=== PATIENT | female | born 1935 | race Caucasian/White ===

== ENCOUNTER 2017-04-14 12:48 | Inpatient (IN) | payer OTHER ==
--- NOTE | 2017-04-14 12:55 | EDPHY ---
HPI/HX/ROS/PE/MDM Narrative: CHIEF COMPLAINT: SOB HPI: This patient is an 81 year old female arriving via EMS with her son complaining that "I don't have enough air in my lungs to walk to the mailbox and back." Her shortness of breath began about three weeks ago, and has been worsening since onset. The patient was hospitalized in May 2016 for pneumonia, and was diagnosed with osteoporosis shortly following this after she sustained a foot fracture in June. Six months ago, she began taking osteoporosis medication ( Actonel, once weekly). The patient's son at bedside states she has considerable stress around this event and attributes many of her symptoms to this medication. He notes that the timeline of her symptoms do not seem to match up with the initiation of her new medication regimen. Today, the patient had a routine physical with her primary care physician. At this time, she was noted to have possible heart block on EKG and cardiomegaly on x-ray. She was sent directly to the emergency department by ambulance. Her only complaint is her shortness of breath, and she states "it feels in there and I can't breathe ". She denies dyspnea or chest pain. She denies pain or swelling in her ankles. No fever, vomiting, diarrhea, urinary complaints, or other associated symptoms. REVIEW OF SYSTEMS: Aside from elements discussed in the HPI, a comprehensive 10-point review of systems was reviewed and is negative. PMH: 1. GERD 2. Osteoporosis 3. Orthopnea SOCIAL HISTORY: Son at bedside. . Lives in [place]. Retired. PHYSICAL EXAM: General:Patient is alert, in no acute distress. ENT:Eyes are normal to inspection. ENT inspection normal. Neck: Normal inspection. Full range of motion. Respiratory:No respiratory distress. Breath sounds normal bilaterally. Cardiovascular: Regular bradycardia. Strong peripheral pulses. Normal cap refill. Abdomen:The abdomen is nontender to palpation. There are no peritoneal signs. There are normal bowel sounds. Back: Normal to inspection. No tenderness to palpation. Skin: Normal color. No rash. Warm and dry. Extremities: 1-2+ pitting edema in ankles bilaterally. Full range of motion. Neuro: Oriented x3. Normal motor function. Normal sensory function. ED Course: 81 y/o female with history of osteoporosis and orthopnea presents with shortness of breath, particularly with exertion. She is currently bradycardic, rate 45. 1-2+ pitting edema in ankles bilaterally. Plan for lab work, repeat chest x-ray. 13:06 EKG was ordered and interpreted by myself. Please see [facility] system for official reading. Possible complete heart block, plan to obtain rhythm strip for review. Pacer pads placed. Reviewed rhythm strip. Suspect third degree heart block. Plan to consult with outside sales manager field investigations. Reviewed chest x-ray. Evidence of diffuse interstitial infiltrate. 14:42 Spoke with outside sales manager field investigations. Cardiology to consult. 14:[address] Moreira, outside sales. He concurs that the patient has third degree heart block, and the patient will require pacemaker placement. Plan to consult with [facility] to determine whether the patient will undergo pacer placement at a [facility] facility or here at [facility]. 14:43 Spoke with [facility] staff. Patient will remain here for pacer placement. Dr. Moreira will accept admission for third degree heart block and perioperative management of this patient. ED CRITICAL CARE TIME: A total of 45 minutes of critical care time was spent on this patient including intensive monitoring, discussion with consultants and [facility], and resuscitation. Organ system at risk is cardiovascular. MDM: This patient presents with exertional dyspnea and is found to be in third- degree heart block. Her BP remained stable in ED but she was consistently bradycardic and was monitored extremely closely with pacer pads in place. I see no evidence of ACS, TAD, sepsis, PE. - Data Points Imaging Results: Imaging Impressions Chest X-Ray 04/14/17 13:25 Impression: Diffuse interstitial infiltrate with a fine micronodular pattern could represent interstitial pulmonary edema, viral pneumonitis or possibly miliary TB. Results discussed with Dr. Orantes at 1:53 PM. Imaging: Discussed imaging studies w/ brewer helper Radiologist, I viewed and interpreted images myself Laboratory Results: Laboratory Results 04/14/17 13:51 04/14/17 13:51 04/14/17 04/14/17 04/14/17 13:51 13:51 13:51 WBC 8.64 10^3/uL 10^3/uL (3.80-9.50) RBC 4.35 10^6/uL 10^6/uL (4.18-5.33) Hgb 14.4 g/dL g/dL (12.6-16.3) Hct 41.4 % % (38.0-47.0) MCV 95.2 fL fL (81.5-99.8) MCH 33.1 pg pg (27.9-34.1) MCHC 34.8 g/dL g/dL (32.4-36.7) RDW 13.2 % % (11.5-15.2) Plt Count 185 10^3/uL 10^3/uL (150-400) MPV 11.5 fL fL (8.7-11.7) Neut % (Auto) 63.4 % % (39.3-74.2) Lymph % (Auto) 23.3 % % (15.0-45.0) [place] % (Auto) 9.4 % % (4.5-13.0) Eos % (Auto) 3.1 % % (0.6-7.6) Baso % (Auto) 0.6 % % (0.3-1.7) Nucleat RBC Rel Count 0.0 % % (0.0-0.2) Absolute Neuts (auto) 5.48 10^3/uL 10^3/uL (1.70-6.50) Absolute Lymphs (auto) 2.01 10^3/uL 10^3/uL (1.00-3.00) Absolute Monos (auto) 0.81 10^3/uL H 10^3/uL (0.30-0.80) Absolute Eos (auto) 0.27 10^3/uL 10^3/uL (0.03-0.40) Absolute Basos (auto) 0.05 10^3/uL 10^3/uL (0.02-0.10) Absolute Nucleated RBC 0.00 10^3/uL 10^3/uL (0-0.01) Immature Gran % 0.2 % % (0.0-1.1) Immature Gran # 0.02 10^3/uL 10^3/uL (0.00-0.10) PT 14.0 SEC SEC (12.0-15.0) INR 1.06 (0.83-1.16) APTT 31.1 SEC SEC (23.0-38.0) Sodium 143 mEq/L mEq/L (134-144) Potassium 4.1 mEq/L mEq/L (3.5-5.2) Chloride 106 mEq/L mEq/L (97-110) Carbon Dioxide 25 mEq/l mEq/l (22-31) Anion Gap 12 mEq/L mEq/L (8-16) BUN 21 mg/dL mg/dL (7-23) Creatinine 0.8 mg/dL mg/dL (0.6-1.0) Estimated GFR > 60 Glucose 94 mg/dL mg/dL (70-100) Calcium 9.7 mg/dL mg/dL (8.5-10.4) Troponin I 0.020 ng/mL ng/mL (0.000-0.034) NT-Pro-B Natriuret Pep 421 pg/mL pg/mL (0-450) General Time Seen by Provider: 04/14/17 12:51 Initial Vital Signs: Initial Vital Signs Temperature (C) 36.8 C 04/14/17 12:50 Heart Rate 47 L 04/14/17 12:50 Respiratory Rate 16 04/14/17 12:50 Blood Pressure 167/73 H 04/14/17 12:50 O2 Sat (%) 93 04/14/17 12:50 O2 Delivery Mode Nasal Cannula O2 (L/minute) 2 Allergies/Adverse Reactions: cephalexin [From Keflex] Allergy (Intermediate, Verified 04/15/17 12:04) Hives lovastatin [From Mevacor] Allergy (Intermediate, Verified 04/15/17 12:04) Other-Enter Comments macadamia nut oil Allergy (Intermediate, Verified 04/15/17 12:04) Vomiting simvastatin [From Zocor] Allergy (Intermediate, Verified 04/15/17 12:04) Other-Enter Comments alendronate sodium Allergy (Unknown, Verified 04/15/17 12:04) Unknown gemfibrozil [From Lopid] Allergy (Unknown, Verified 04/15/17 12:04) Unknown Penicillins Allergy (Unknown, Verified 04/15/17 12:04) Unknown Home Medications: Medication Instructions Recorded Ascorbic Acid [Vitamin C 500 mg 500 mg PO DAILY 04/14/17 (*)] Aspirin EC [Aspirin EC 81 mg (*)] 81 mg PO DAILY 04/14/17 Calcium Carb W/Vit D [Calcium Carb 500 mg PO DAILY 04/14/17 W/Vit D 500/200 (*)] Cholecalciferol Vit D3 [Vitamin D3 1,000 units PO DAILY 04/14/17 (*)] Cyanocobalamin [Vitamin B12 (*)] 500 mcg PO DAILY 04/14/17 Loratadine [Claritin] 10 mg PO DAILY 04/14/17 Niacin [Slo-Niacin] 500 mg PO QID 04/14/17 Potassium Cl [Klor-Con 10 meq (RX)] 10 meq PO DAILY 04/14/17 Ranitidine HCl [Zantac] 300 mg PO BID 04/14/17 Risedronate Sodium [Actonel] 35 mg PO SA@0700 04/14/17 Triamterene/Hydrochlorothiazid 1 each PO DAILY 04/14/17 [Triamterene-Hctz 75-50 mg Tab] Glucosamine Sulfate [Glucosamine 1,000 mg PO TID 04/15/17 Sulfate 500 MG (*)] Herbals/Supplements -Info Only 1 ea PO DAILY 04/15/17 Multivitamins [Multivitamin (*)] 1 each PO DAILY 04/15/17 Omeprazole [Prilosec 20 mg] 20 mg PO DAILY PRN 04/15/17 Acetaminophen [Tylenol 325mg (*)] 650 mg PO Q4HRS PRN tab 04/16/17 Aspirin [Aspirin 81mg (*)] 81 mg PO DAILY #30 tab.chew 04/16/17 Losartan Potassium [Cozaar 50 mg 50 mg PO DAILY tab 04/16/17 (*)] Metoprolol Succinate Xr [Toprol Xl 25 mg PO DAILY #30 tab 04/16/17 25 mg (*)] Triamterene/Hctz 37.5/25 1 each PO DAILY tab 04/16/17 [Maxzide-25 (*)] Departure - Departure Disposition: [facility] Inpatient Acute Clinical Impression: Third degree heart block Condition: Fair Report Scribed for: Osbaldo Orantes Report Scribed by: Ignacia Guzman Date of Report: 04/14/17 Time of Report: 12:54 Physician Review and Approval Statement: Portions of this note were transcribed by an ED scribe. I personally performed the history, physical exam, and medical decision making; and confirm the accuracy of the information in the transcribed note.
--- NOTE | 2017-04-14 13:09 | CPEKG ---
Heart Rate: 45 RR Interval: 1333 QRSD Interval: 112 QT Interval: 512 QTC Interval: 443 QRS [place]: -52 T Wave [place]: -13 EKG Severity - ABNORMAL ECG - EKG Impression: JUNCTIONAL ESCAPE RHYTHM EKG Impression: INCOMPLETE RBBB AND LAFB EKG Impression: PROBABLE LEFT VENTRICULAR HYPERTROPHY Electronically Signed By: Osbaldo Orantes 14-Apr-2017 21:22:21
[2017-04-14 13:55] LABS: PLATELET COUNT 185 10^3/uL (150-400)
[2017-04-14 14:04] LABS: INR 1.06 (0.83-1.16)
[2017-04-14] MEDS ORDERED: ONDANSETRON 4 MG/2 ML VIAL IVP PRN (15:04)
[2017-04-14] MEDS ORDERED: ONDANSETRON DISINTEGRATING 4 MG TAB PO PRN (15:04)
[2017-04-14] MEDS ORDERED: NS 1,000 ML IV ONE (15:04)
--- NOTE | 2017-04-14 15:43 | PDGENHP ---
History and Physical - Chief Complaint Short of breath - History of Present Illness 81-year-old female no prior cardiovascular history, longstanding hypertension hyperlipidemia which been well managed presents today with 4 week history of progressive exertional shortness of breath. She has not been able to take more than 1 step without having to the gasp for breath. This is not been associated with syncope or near-syncope. This is not associated with chest pain, PND, orthopnea. She was seen today by her primary care doctor who performed an EKG showing complete heart block and she was transferred by ambulance to the emergency department. On my arrival she had her ventricular response of 44 beats per minute. Blood pressure is normal. She is asymptomatic at rest. She has no past cardiac history. In particular, she has no history of cardiac dysrhythmia, valvular heart disease, coronary artery disease. Risk as mentioned above includes hypertension treated with metoprolol and hyperlipidemia. She recently had fractures was diagnosed with osteoporosis. History Information - Allergies/Home Medication List Allergies/Adverse Reactions: alendronate sodium Allergy (Verified 04/14/17 13:00) cephalexin [From Keflex] Allergy (Verified 04/14/17 13:00) gemfibrozil [From Lopid] Allergy (Verified 04/14/17 13:00) lovastatin [From Mevacor] Allergy (Verified 04/14/17 13:00) macadamia nut oil Allergy (Verified 04/14/17 13:00) Penicillins Allergy (Verified 04/14/17 13:00) simvastatin [From Zocor] Allergy (Verified 04/14/17 13:00) Home Medications: Actonel 04/14/17 [Last Taken Unknown] Aspirin EC 81 mg (*) 04/14/17 [Last Taken Unknown] Calcium Carbonate 04/14/17 [Last Taken Unknown] K-Tab ER 04/14/17 [Last Taken Unknown] Loratadine 04/14/17 [Last Taken Unknown] Maxzide-25 (*) 04/14/17 [Last Taken Unknown] Metoprolol Tartrate 04/14/17 [Last Taken Unknown] Slo-Niacin 04/14/17 [Last Taken Unknown] Super Dha Gems Softgel 04/14/17 [Last Taken Unknown] Vitamin B-12 04/14/17 [Last Taken Unknown] Vitamin C 500 mg (*) 04/14/17 [Last Taken Unknown] Vitamin D3 04/14/17 [Last Taken Unknown] Zantac 04/14/17 [Last Taken Unknown] I have personally reviewed and updated: family history, medical history, social history, surgical history - Past Medical History hypertension, hyperlipidemia, recent fracture - Family History Positive for: non-pertinent - Social History Smoking Status: Never smoked Alcohol Use: None Review of Systems Review of Systems: Constitutional: Reports: no symptoms EENMT: Reports: no symptoms Cardiac: Reports: no symptoms Respiratory: Reports: shortness of breath. Denies: cough, orthopnea, stridor, wheezing Gastrointestinal: Reports: no symptoms Genitourinary: Reports: no symptoms Muscolosketal: Reports: no symptoms Skin: Reports: no symptoms Neurological: Reports: no symptoms Hematologic/Lymphatic: Reports: no symptoms Immunologic/Allergy: Reports: no symptoms Physical Exam Physical Exam: Temp Pulse Resp BP Pulse Ox 36.4 C 44 L 12 181/91 H 97 04/14/17 14:00 04/14/17 14:00 04/14/17 14:00 04/14/17 14:00 04/14/17 14:00 Constitutional: no apparent distress, not in pain Eyes: PERRL, anicteric sclera Ears, Nose, Mouth, Throat: moist mucous membranes, hearing normal, No oral ulcer Cardiovascular: regular rate and rhythym, No no murmur, rub, or gallop Peripheral Pulses: 1+: carotid (R), carotid (L) Respiratory: no respiratory distress, no rales or rhonchi, clear to auscultation Gastrointestinal: normoactive bowel sounds, soft, non-tender abdomen Genitourinary: no bladder fullness Skin: normal color, no rashes or abrasions Musculoskeletal: full muscle strength Neurologic: AAOx3, No facial droop Psychiatric: interacting appropriately, No anxious Lymph, Heme, Immunologic: no cervical LAD, no supraclavicular LAD Lab Data & Imaging Review 04/14/17 13:51 04/14/17 13:51 WBC 8.64 10^3/uL (3.80-9.50) 04/14/17 13:51 RBC 4.35 10^6/uL (4.18-5.33) 04/14/17 13:51 Hgb 14.4 g/dL (12.6-16.3) 04/14/17 13:51 Hct 41.4 % (38.0-47.0) 04/14/17 13:51 MCV 95.2 fL (81.5-99.8) 04/14/17 13:51 MCH 33.1 pg (27.9-34.1) 04/14/17 13:51 MCHC 34.8 g/dL (32.4-36.7) 04/14/17 13:51 RDW 13.2 % (11.5-15.2) 04/14/17 13:51 Plt Count 185 10^3/uL (150-400) 04/14/17 13:51 MPV 11.5 fL (8.7-11.7) 04/14/17 13:51 Neut % (Auto) 63.4 % (39.3-74.2) 04/14/17 13:51 Lymph % (Auto) 23.3 % (15.0-45.0) 04/14/17 13:51 [place] % (Auto) 9.4 % (4.5-13.0) 04/14/17 13:51 Eos % (Auto) 3.1 % (0.6-7.6) 04/14/17 13:51 Baso % (Auto) 0.6 % (0.3-1.7) 04/14/17 13:51 Nucleat RBC Rel Count 0.0 % (0.0-0.2) 04/14/17 13:51 Absolute Neuts (auto) 5.48 10^3/uL (1.70-6.50) 04/14/17 13:51 Absolute Lymphs (auto) 2.01 10^3/uL (1.00-3.00) 04/14/17 13:51 Absolute Monos (auto) 0.81 10^3/uL (0.30-0.80) H 04/14/17 13:51 Absolute Eos (auto) 0.27 10^3/uL (0.03-0.40) 04/14/17 13:51 Absolute Basos (auto) 0.05 10^3/uL (0.02-0.10) 04/14/17 13:51 Absolute Nucleated RBC 0.00 10^3/uL (0-0.01) 04/14/17 13:51 Immature Gran % 0.2 % (0.0-1.1) 04/14/17 13:51 Immature Gran # 0.02 10^3/uL (0.00-0.10) 04/14/17 13:51 PT 14.0 SEC (12.0-15.0) 04/14/17 13:51 INR 1.06 (0.83-1.16) 04/14/17 13:51 APTT 31.1 SEC (23.0-38.0) 04/14/17 13:51 Sodium 143 mEq/L (134-144) 04/14/17 13:51 Potassium 4.1 mEq/L (3.5-5.2) 04/14/17 13:51 Chloride 106 mEq/L (97-110) 04/14/17 13:51 Carbon Dioxide 25 mEq/l (22-31) 04/14/17 13:51 Anion Gap 12 mEq/L (8-16) 04/14/17 13:51 BUN 21 mg/dL (7-23) 04/14/17 13:51 Creatinine 0.8 mg/dL (0.6-1.0) 04/14/17 13:51 Estimated GFR > 60 04/14/17 13:51 Glucose 94 mg/dL (70-100) 04/14/17 13:51 Calcium 9.7 mg/dL (8.5-10.4) 04/14/17 13:51 Troponin I 0.020 ng/mL (0.000-0.034) 04/14/17 13:51 NT-Pro-B Natriuret Pep 421 pg/mL (0-450) 04/14/17 13:51 Visualized and Interpreted imaging results: Yes Interpretation: Echocardiogram shows no pericardial effusion. Preserved LV systolic function without significant valvular abnormalities. EKG Interpretation: Positive for: other (Sinus rhythm with third-degree AV block. Ventricular rate of 44 beats per minute) Assessment & Plan Assessment: Third degree heart block (Acute) 81-year-old female with history of hypertension hyperlipidemia on beta-vu now with 4 week history of progressive exertional shortness of breath. Likely etiology is complete heart block with limited ventricular response. At the present time she is hemodynamically stable at rest. She is on AV steve agent. Would recommend discontinuing her metoprolol with observation over the next 12- 18 hours. If av conduction does not improve would recommend permanent pacing. We will await completion of metabolic profile including thyroid hormone. EKG does not suggest acute injury. Cardiac enzymes pending. Risks benefits permanent pacing were discussed with the patient her family. I am hoping that her AV node will recover. I have discussed the case with Dr. Chin. Either he or I will be available over the weekend place the device if necessary. Plan: 1. Discontinue metoprolol. 2. Evaluate metabolic profile. 3. Consider permanent pacing if AV node does not recover. Past Medical History PMH: - Personal History Current Tetanus/Diphtheria Vaccine: Yes Current Tetanus Diphtheria and Acellular Pertussis (TDAP): Yes - Medical/Surgical History Hx Asthma: No Hx Chronic Respiratory Disease: No Hx Cardiac Disease: No Hx Diabetes: No Hx Renal Disease: No Hx Alcoholism: No Hx Cirrhosis: No Hx HIV/AIDS: No Hx Splenectomy or Spleen Trauma: No Other PMH: orthopnea, GERD - Social History Smoking Status: Never smoked Additional Social History: Patient enjoys travel. She has 2 sons were present at the bedside.
--- NOTE | 2017-04-14 16:13 | ECHO ---
[email or web address] [address] Main: [phone] Fax: [email or web address] Echocardiogram Name: KARINA WEEKS MR#: [id number] Study Date: 04/14/2017 Study Time: 03:29 PM Date of : 1935 Age: 81 year(s) Height: 157.5 cm (62 in.) Weight: 81.65 kg (180 lb.) BSA: 1.83 m2 Gender: Female Examination: Echo Indication: SOB/heart block Image Quality: Contrast: Requested by: Demarco Moreira BP: / Heart Rate: Rhythm: Indication: SOB/heart block Procedure Staff Hoop Riveting Machine Operator Helper: Viri Ames Physician: Demarco Moreira Requesting Provider: Conclusions: No pericardial effusion. Preserved left ventricular systolic function. Ejection fraction 65%. Concentric left ventricular hypertrophy. No significant valvular abnormalities by Doppler 2 dimensional study. Right ventricular systolic pressure is elevated at 52 mm of mercury Measurements: Chambers Valvular Assessment AV/MV Valvular Assessment TV/PV Normal Normal Normal Name Value Range Name Value Range Name Value Range Ao Paige (MM): 3.4 cm (2.2 cm-3.7 AV Vmax: 1.47 m/s (1 m/s-1.7 TR Vmax: 3.44 mm/s ( - ) cm) m/s) TR PGmax: 47 mmHg ( - ) IVSd (2D): 1.2 cm (0.6 cm-1.1 AV maxP mmHg ( - ) syst. PAP: 52 mmHg ( - ) cm) AV meanP mmHg ( - ) LVDd (2D): 4.6 cm (3.9 cm-5.3 MV E Vmax: 0.85 m/s ( - ) cm) MV A Vmax: 0.93 m/s ( - ) LVDs (2D): 3.1 cm (2.1 cm-4 MV E/A: 0.91 ( - ) cm) LVPWd (2D): 1.1 cm ( - ) LVEF (MOD4): 67 % (>=55 %) EF Range: 65-70 % Continued Measurements: Chambers Valvular Assessment AV/MV Valvular Assessment TV/PV Name Value Name Value Name Value LADs: 3.7 cm MV E/E' Septal: 4.90 CVP (est.): 5 mmHg LADs Lon.1 cm MV E/E' Lateral: 12.50 LA Area: 17.7 cm2 Additional Vessels Patient: KARINA WEEKS Study Date: 04/14/2017 Page 1 of 2 03:29 PM Name Value Ao Ascendin.0 cm Findings: Left Ventricle: Normal size left ventricle. Mild concentric LV hypertrophy. Normal global systolic LV function. The ejection fraction is estimated to be 65-70 %. No regional wall motion abnormality. Right Ventricle: Normal size right ventricle. Left Atrium: The left atrium is normal in size. Right Atrium: The right atrium is normal in size. Mitral Valve: The mitral valve is normal in appearance and function. Mild mitral valve regurgitation is present. Aortic Valve: The aortic valve is normal in appearance and function. Trivial aortic valve regurgitation. Tricuspid Valve: The tricuspid valve is normal in appearance and function. Mild tricuspid regurgitation is present. The pulmonary artery pressure is mildly increased. RVSP is 52mmHG.. Pulmonic Valve: The pulmonic valve is normal in appearance and function. Trivial pulmonic valve regurgitation. Aorta: Borderline ascending aorta.. The aorta is normal. Pericardium: No pericardial effusion. (No Signature Object) Patient: KARINA WEEKS Study Date: 04/14/2017 Page 2 of 2 03:29 PM [id number]
[2017-04-14] MEDS ORDERED: LOSARTAN/HCTZ 50/12.5 1 TAB PO SCH (16:15)
[2017-04-14] MEDS: TRIAMTERENE/HCTZ 37.5/25 1 EACH TAB PO SCH (18:22)
[2017-04-14] MEDS: LOSARTAN POTASSIUM 50 MG TAB PO SCH (18:22)
[2017-04-15 04:39] LABS: CREATINE KINASE 65 IU/L (0-156)
[2017-04-15] MEDS ORDERED: BACITRACIN IRRIGATION/NS 50,000 UNITS/1,000 ML BTL IRR ONE ×2 (06:00→08:50)
[2017-04-15] MEDS: LOSARTAN POTASSIUM 50 MG TAB PO SCH (08:15)
[2017-04-15] MEDS: TRIAMTERENE/HCTZ 37.5/25 1 EACH TAB PO SCH (08:15)
--- NOTE | 2017-04-15 08:47 | CPEKG ---
Heart Rate: 42 RR Interval: 1429 QRSD Interval: 114 QT Interval: 580 QTC Interval: 485 QRS [place]: -25 T Wave [place]: -17 EKG Severity - ABNORMAL ECG - EKG Impression: JUNCTIONAL ESCAPE RHYTHM EKG Impression: INCOMPLETE RBBB AND LAFB EKG Impression: PROBABLE LEFT VENTRICULAR HYPERTROPHY EKG Impression: PROBABLE 3- RD DEGREE AV BLOCK EKG Impression: INFERIOR T WAVE ABNORMALITIES Electronically Signed By: Lauro Carrero 16-Apr-2017 07:37:33
[2017-04-15] MEDS ORDERED: NS 1,000 ML IV ONE (08:50)
--- NOTE | 2017-04-15 09:00 | PDCARPN ---
Cardiology Progress Note Assessment/Plan: Assessment/plan: 81-year-old female with hypertension admitted from her primary care physician's office with dyspnea, fatigue, found to be in complete heart block. Initially it was thought she was taking metoprolol, but it turns out she has not taken this medication for several weeks as she has not had it refilled. She is hemodynamically stable with normal blood pressure. 1. Persistent complete heart block on telemetry. Junctional escape rhythm in the 40s. Given her advanced age, lack of nodally acting agents, and her symptoms of SOB and fatigue, dual-chamber pacemaker is indicated. This will be scheduled Dr. Gray Chin this morning. I have discussed this with the patient and her son via telephone. 2. Hypertension: She is on her usual outpatient medications with the exception of metoprolol. 3. Pulmonary hypertension: This was seen on echocardiogram. This will require outpatient follow-up. Clinically she is not in right heart failure. 4. Low TSH: She is not on thyroid supplementation. Follow-up with primary care. 5. Abnormal chest x-ray: This may be related to her bradycardia with some heart strain, although her BNP is relatively normal. She will have a follow-up chest x-ray post pacemaker implantation. If still abnormal, consider high- resolution chest CT. The patient will require inpatient status due to greater than 2 midnight stay. Greater than 30 min was spent in data review, patient contact, coordination of care. 04/15/17 09:01 Subjective: Marnie feels fatigued. She is dyspneic with activities of daily living. No chest pain. She confirms that she has not been taking metoprolol for several weeks because she ran out and has not had it refilled. She is not on medications for hypothyroidism Reviewed/Discussed With: family, multidisciplinary team, other (Dr. Chin. Dr. Sotelo) Objective: Vital Signs (8 Hrs) Temp Pulse Resp BP Pulse Ox 04/15/17 08:06 44 L 04/15/17 07:13 36.3 C 49 L 16 163/65 H 93 04/15/17 04:24 36.6 C 43 L 19 140/78 H 93 Intake/Output (24 Hrs) 04/14/17 04/15/17 04/16/17 05:59 05:59 05:59 Intake Total 1100 Output Total 1650 Balance -550 Intake: Oral (ml) 300 IV Infused (ml) 800 Output: Urine (ml) 1650 Toilet 1650 Other: Weight 81.647 kg Number of Voids Toilet 2 No acute distress. Sitting up in chair JVP less than 10. Regular bradycardic rhythm without murmur rub or gallop Lungs fine bibasilar rales without wheezes or rhonchi Trace bilateral ankle edema Neuro alert and oriented x3 without gross focal neurologic deficits Chest x-ray personally reviewed and discussed with Dr. Sotelo. Diffuse interstitial infiltrate. Result Diagrams: 04/14/17 13:51 04/15/17 03:47 Cardiac Labs: Cardiac Lab Results (72 Hrs) 04/15/17 04/14/17 04/14/17 03:47 20:15 15:24 CK-MB (CK-2) Fraction 1.71 1.35 1.71 Troponin I 0.017 0.017 0.018 EKG: [facility] Telemetry: [facility] ICD10 Worksheet Patient Problems: Problems Problem Status Onset Third degree heart block Acute
[2017-04-15] MEDS ORDERED: VANCOMYCIN HCL/NORMAL SALINE 250 ML IV ONE (09:19)
[2017-04-15] MEDS ORDERED: fentaNYL 100 MCG/2 ML INJ ONE (10:51)
[2017-04-15] MEDS ORDERED: LIDOCAINE 1% 300 MG/30 ML SDV ONE (10:51)
[2017-04-15] MEDS ORDERED: MIDAZOLAM 2 MG/2 ML VIAL ONE (10:52)
[2017-04-15] MEDS ORDERED: BUPIVACAINE 0.5% 30 ML SDV ONE (10:52)
--- NOTE | 2017-04-15 11:08 | PDPROPOC ---
Sedation Plan of Care Sedation Plan of Care: vital signs stable, mental status noted, patient educated of risks, benefits, alternatives, patient can tolerate sedation ASA Classification: ASA 3 Planned drugs: fentanyl, midazolam Mallampati Score: Class 3 Mallampati Reference Image: Patient passed 3-3-2 rule?: Yes
[2017-04-15] MEDS ORDERED: FUROSEMIDE 20 MG/2 ML VIAL ONE (11:57)
--- NOTE | 2017-04-15 13:30 | CPEKG ---
Heart Rate: 70 RR Interval: 857 P-R Interval: 184 QRSD Interval: 150 QT Interval: 468 QTC Interval: 506 P [place]: -7 QRS [place]: -70 T Wave [place]: 94 EKG Severity - ABNORMAL ECG - EKG Impression: ATRIAL-SENSED VENTRICULAR-PACED COMPLEXES Electronically Signed By: Lauro Carrero 16-Apr-2017 07:37:42
--- NOTE | 2017-04-15 14:50 | ASMTCMCOM ---
CM Note CM Note Notes: 04/15/2018 Case Management Note Reviewed chart, spoke w/RN. Per RN pt to have pacemaker today. Met w/pt and sons Rubio [phone] and Rich [phone]. CORONA signed. Pt to live with Rubio for a few weeks as she recovers from procedure. Prior to admission, pt was independent in ADL's and able to drive. She lives alone but Rich is just 2 blocks away from her. Case Management d/c poc: Home with family support with follow up as directed. Case Management available if needs change. Date Signed: 04/15/2017 02:50 PM Electronically Signed By:Alisa Swenson RN
[2017-04-15] MEDS: ACETAMINOPHEN 325 MG TAB PO PRN (19:09)
--- NOTE | 2017-04-16 05:59 | CPEKG ---
Heart Rate: 103 RR Interval: 583 P-R Interval: 220 QRSD Interval: 136 QT Interval: 400 QTC Interval: 524 P Walker: 70 QRS Walker: -68 T Wave Walker: 91 EKG Severity - ABNORMAL ECG - EKG Impression: VENTRICULAR-PACED RHYTHM Electronically Signed By: Lauro Carrero 16-Apr-2017 07:32:19
[2017-04-16 08:37] LABS: PLATELET COUNT 192 10^3/uL (150-400)
[2017-04-16] MEDS ORDERED: METOPROLOL SUCCINATE XR 25 MG TAB PO SCH (09:30)
[2017-04-16] MEDS: LOSARTAN POTASSIUM 50 MG TAB PO SCH (09:45)
[2017-04-16] MEDS: TRIAMTERENE/HCTZ 37.5/25 1 EACH TAB PO SCH (09:45)
[2017-04-16] MEDS ORDERED: ASPIRIN 81 MG CHEWABLE TAB PO SCH (10:15)
[2017-04-16 11:10] VITALS: BP 131/68; PULSE 103; RESP 15; TEMP 98
--- NOTE | 2017-04-16 13:51 | PDIAF ---
- Diagnosis Diagnosis: s/p PPM Code Status: Full Code - Medication Management Discharge Medications: Medications to Continue on Transfer Ascorbic Acid [Vitamin C 500 mg (*)] 500 mg PO DAILY 04/14/17 [Last Taken ] Aspirin EC [Aspirin EC 81 mg (*)] 81 mg PO DAILY 04/14/17 [Last Taken 04/14/17] Calcium Carb W/Vit D [Calcium Carb W/Vit D 500/200 (*)] 500 mg PO DAILY [Last Taken 04/14/17] Cholecalciferol Vit D3 [Vitamin D3 (*)] 1,000 units PO DAILY 04/14/17 [Last Taken 04/14/17] Cyanocobalamin [Vitamin B12 (*)] 500 mcg PO DAILY 04/14/17 [Last Taken 04/14/17] Loratadine [Claritin] 10 mg PO DAILY 04/14/17 [Last Taken 04/14/17] Niacin [Slo-Niacin] 500 mg PO QID 04/14/17 [Last Taken Unknown] Potassium Cl [Klor-Con 10 meq (RX)] 10 meq PO DAILY 04/14/17 [Last Taken ] Ranitidine HCl [Zantac] 300 mg PO BID 04/14/17 [Last Taken 04/14/17 08:00] Risedronate Sodium [Actonel] 35 mg PO SA@0700 04/14/17 [Last Taken Unknown] Triamterene/Hydrochlorothiazid [Triamterene-Hctz 75-50 mg Tab] 1 each PO DAILY 04/14/17 [Last Taken 04/14/17] Glucosamine Sulfate [Glucosamine Sulfate 500 MG (*)] 1,000 mg PO TID 04/15/17 [ Last Taken 04/14/17 07:00] Herbals/Supplements -Info Only 1 ea PO DAILY 04/15/17 [Last Taken Unknown] Multivitamins [Multivitamin (*)] 1 each PO DAILY 04/15/17 [Last Taken 04/14/17] Omeprazole [Prilosec 20 mg] 20 mg PO DAILY PRN 04/15/17 [Last Taken Unknown] Acetaminophen [Tylenol 325mg (*)] 650 mg PO Q4HRS PRN tab 04/16/17 [Last Taken Unknown] Aspirin [Aspirin 81mg (*)] 81 mg PO DAILY #30 tab.chew 04/16/17 [Last Taken Unknown] Losartan Potassium [Cozaar 50 mg (*)] 50 mg PO DAILY tab 04/16/17 [Last Taken Unknown] Metoprolol Succinate Xr [Toprol Xl 25 mg (*)] 25 mg PO DAILY #30 tab 04/16/17 [ Last Taken Unknown] Triamterene/Hctz 37.5/25 [Maxzide-25 (*)] 1 each PO DAILY tab 04/16/17 [Last Taken Unknown] Discharge Medications: Refer to the Discharge Home Medication list for PRN reason. - Orders Services needed: Physical Therapy (3 times per week) Diet Recommendation: sodium restricted Diet Texture: Regular Texture Diet - Labs/Radiology Call or Fax Lab and Imaging Results to: [facility] - Follow Up Care Current Providers and Referrals: Patient,NotPresent [Unknown] - As per Instructions Gray Chin MD [Medical Doctor] - (please call [facility] to make an appointment for wound check and pacemaker check in 7-9 days. )
--- NOTE | 2017-04-16 15:10 | PDHOMEO2F ---
Home Oxygen Face to Face Home Orders: I certify that a physician or a nurse practitioner or physician's real estate executive assistant has had a [id number] encounter with this patient on the date of this order due to the diagnosis listed, which relates to the primary reason the patient requires home oxygen. Alternative treatments have been tried, or considered, and deemed ineffective. It is anticipated that supplemental oxygen will result in improvement with treatment. Home oxygen qualifying diagnosis: third degree heart block SpO2 on room air (%): 83 Frequency of home oxygen needed: continuous Home oxygen liters per minute: 2 Home oxygen delivery device: nasal cannula Concentrator: Yes E-tanks for mobility and back up: Yes If ordering portable O2, is the patient mobile in the home?: Yes I certify that, based on these findings, the home oxygen is medically necessary for this patient for the following length of time. Length of time home oxygen needed: 3 months
[2017-04-16 16:21] VITALS: O2SAT 83
[2017-04-16] MEDS: ACETAMINOPHEN 325 MG TAB PO PRN (17:50)
--- NOTE | 2017-04-16 18:17 | GDS ---
[f rep st] DISCHARGE SUMMARY ADMISSION DIAGNOSES: 1. Complete heart block. 2. Diastolic heart failure. 3. Hypertension. 4. Coronary artery calcification. 5. Pulmonary hypertension. 6. Abnormal chest CT scan. 7. Low TSH. DISCHARGE DIAGNOSES: 1. Complete heart block, status post dual chamber St. Isauro pacemaker. 2. Hypertension. 3. Pulmonary hypertension. 4. Coronary artery calcifications. 5. Resolved diastolic heart failure. 6. Low TSH and thyroid nodule. 7. Abnormal chest CT scan with interstitial lung disease. PROCEDURE: During admission: 1. Chest x-ray shows interstitial lung disease. 2. Chest CT without contrast and high-resolution shows subtle patchy ground-glass airspace disease, greatest in the right upper lobe. Interlobular septal thickening. No pneumonia. No adenopathy. Th ere is a 19 mm enhancing right thyroid lobe mass. There is prominent left coronary artery disease ca lcification with diagonal calcification and also involving the circumflex. 3. Echocardiogram: Normal LV size and systolic function with no regional wall motion abnormality. No significant valvular disease. Estimated pulmonary pressure of 52 mmHg, which is consistent with m oderate pulmonary hypertension. 4. Pacemaker placement: The patient had a dual chamber St. Isauro pacemaker placed by Dr. Gray grover on April 15, without complication. 5. Followup chest x-ray post pacemaker placement shows normal atrial and ventricular lead position w ithout pneumothorax. HOSPITAL COURSE: The patient is an 81-year-old female with the above outlined medical history. She was admitted from her primary care physician's office with fatigue, exertional dyspnea, and bradycard ia. She was found to be in complete heart block. Her blood pressure was stable. The following day she underwent an uneventful implant of a dual chamber St. Isauro pacemaker. The day of discharge, her pacemaker was functioning normally. She was having frequent PAC's, as well as 1 very short, less lashay n 1 minute, episode of possible atrial flutter. Beta-vu was initiated for PACs. Aspirin was in itiated. We will wait for full anticoagulation depending on if she has recurrent atrial arrhythmia. She felt well the day of discharge and was ambulating in the halls. She did work with [facility] [employer] [facility] and they have recommended 3 times per week home physical therapy. She had the imaging studies, as detailed above, and will require outpatient followup for thyroid nodu le, as well as her underlying lung disease and her pulmonary hypertension. DISCHARGE PHYSICAL EXAM: VITAL SIGNS: Blood pressure is 131/68, heart rate 103, oxygen saturation 9 5% on 1 L, but she also had normal saturations on room air. GENERAL: A well-appearing, older female , in no acute distress. NECK: JVP less than 10. CHEST: Pacer dressing is clean, dry and intact, w ith minimal tenderness and no hematoma. She did have a skin reaction to the adhesive tape and has 2 small skin tears that were dressed at the bedside. HEART: Regular rate and rhythm without murmur or gallop. LUNGS: Clear to auscultation bilaterally without wheezes, rhonchi, or rales. ABDOMEN: So ft, nontender, nondistended. EXTREMITIES: Warm and well perfused without edema. DISCHARGE LABS: White count 9.8, hematocrit 45.8, and platelets are 192. INR is 1.06. Sodium 142, potassium 4.1, chloride 101, bicarb 25, BUN 16, creatinine 0.8. Her LDL cholesterol is 118. TSH is 0.32, but her free T4 and free T3 are normal. DISCHARGE INSTRUCTIONS: 1. The patient will be discharged home to stay with her family, as she does require 24-hour supervis ion. Home physical therapy as detailed above. 2. Follow up with her primary care provider, Dr. John, at [facility], regarding abnormal TSH, pulmo nary hypertension, thyroid nodule seen on chest CT, and abnormal chest CT with interstitial lung dise ase. 3. Follow up with Dr. Gray Chin in 1 week for wound check and device check. Her pacemaker care w ill then be transferred to the [facility] system. 4. Pacemaker precautions were reviewed. 5. All the results discussed with family. CONDITION: She is currently discharged in stable condition. Copy requested to: Dr. John /[id number]/MODL
--- NOTE | 2017-04-17 14:16 | ASDISCHSUM ---
Discharge Information Plan Status:Home with Home Health Medically Cleared to Leave:04/15/2017 Discharge Date:04/16/2017 07:00 PM CM D/C Disposition:Home, Routine, Self-Care ADT D/C Disposition:Home, Routine, Self-Care Projected Discharge Date:04/16/2017 11:00 AM Transportation at D/C:Family Discharge Delay Reason: Follow-Up Date:04/16/2017 11:00 AM Discharge Slot: Final Diagnosis: Placement Information Referral Type:*Home Health Care Services Referral ID:[id number] Provider Name:[facility] [address] [address] Address 2: City:[place] Selection Factors: State:[place] Patient Contact Information Contact Name:CALEB Relationship:Son Address:[address] Work Phone: City:[place] Alternate Phone: [facility]/Zip Code:[place] [address] Email: Financial Information Financial Class:Medicare Advantage Plans Primary Plan Desc:[facility] MEDICARE ADVANTAGE OUTPAT Primary Plan Number:[id number] Secondary Plan Desc: Secondary Plan Number: Assessment Information LACE LACE Acuity / Level of Care Answers: Was the patient admitted to hospital via the emergency department? Yes: Comorbidities - select Answers: Congestive heart failure all that apply Emergency dept visits in Answers: 1 last 6 months Score: 6 Date Signed: 04/14/2017 03:46 PM Electronically Signed By:Beth Ramírez RN [facility] Progress Note CM Note CM Note Notes: 04/15/2018 Case Management Note Reviewed chart, spoke w/RN. Per RN pt to have pacemaker today. Met w/pt and sons Rubio [phone] and Rich [phone]. [place] signed. Pt to live with Rubio for a few weeks as she recovers from procedure. Prior to admission, pt was independent in ADL's and able to drive. She lives alone but Rich is just 2 blocks away from her. Case Management d/c poc: Home with family support with follow up as directed. Case Management available if needs change. Date Signed: 04/15/2017 02:50 PM Electronically Signed By:Alisa Swenson RN Case Management Discharge Plan Note Case Management Discharge Discharge Order Complete? Answers: Yes Patient to Obtain Answers: via Family Medications Transportation Arranged Answers: Family/Friends Faxed Final Orders Answers: Yes Notes: to [facility] both through [employer] and [employer] [phone] Agency/Facility Transfer Answers: Yes Report Printed & Faxed to Receiving Agency Family Notified Answers: Yes Notes: in room Discharge Comments Notes: 04/16/2017 Case Management Note PT recommending home care PT services. Pt insurance is [facility]. Notified [facility], spoke with Nica at [phone] who was having difficulty logging into [employer]. Faxed final orders through [employer] and [employer] to [phone]. Family notified of Home Care visits. Pt to stay at [address] [place] [id number]. [phone] is the contact cell number for Rubio. Provided all info to [facility]. Family to transport pt home. Date Signed: 04/16/2017 02:04 PM Electronically Signed By:Alisa Swenson RN Intervention Information Intervention Type:*CORONA-Signed Date of Service:04/15/2017 02:50 PM Patient Type:Inpatient Staff Member:JAZ Swenson, Alisa Hours: Discipline: Severity: Comment:
--- NOTE | 2017-04-20 09:49 | EPPROC ---
Electrophysiology Procedure Note: PROCEDURE PERFORMED: Implantation of an A/V Pacemaker Fluoroscopy INDICATION: This is a 81 yr old with symptoms of fatigue and SOA who had complete heart block. Hence it was decided to implant dual chamber pacemaker. PROCEDURE NOTE: Patient presented to the cardiac catheterization laboratory in a fasting, post absorptive state. Cardiac stores laborer nurse administered moderate sedation. The left infraclavicular area was prepped and draped in the usual sterile fashion. Lidocaine plus bupivacaine was used for local anesthesia. Left subclavian venography was performed by injection of iodinated contrast into the left antecubital vein. This was done to assure patency of the vein and also to assess for any anatomical aberrations. Using a combination of blunt and sharp dissection and electrocautery, the dissection was carried down to the prepectoral fascia. All bleeding was controlled with electrocautery. Fluoroscopy was utilized during the entire procedure for venous access and placement of the leads. Using the usual technique, left cephalic vein was accessed and a glidewire was placed. Through this initially a 9F and later a 7F sheath was passed. Placement of the guidewires into the venous system was confirmed by low- pressure blood return and also by visualizing the guidewires advancing into the inferior vena cava. A purse string suture was applied around the guidewires. An active fixation ventricular lead was advanced into the right ventricular apex and screwed in place. An active fixation atrial lead was advanced into the right atrial appendage and screwed in place. The peel away sheaths were removed. Pacing thresholds, sensing parameters and lead impedances were measured. There was no diaphragmatic stimulation at maximum output. The leads were sutured to the prepectoral fascia with 3 nonabsorbable sutures each. The pocket was created and it was flushed using antibiotic solution. It was inspected for any bleeding. The leads were attached to the pacemaker securely. The pacemaker was inserted into the pocket and secured in place with a nonabsorbable suture. Fluoroscopy was performed in [place] and [place] planes to verify right-sided placement of the leads. Also fluoroscopy of the pacemaker pocket was performed. The pacemaker pocket was closed in 3 layers with absorbable vicryl sutures. Steristrips were placed. Appropriate dressing was applied. The patient left the cardiac catheterization laboratory in stable condition. Serial Numbers: Device: St Isauro Assurity MRI SN [id number] Atrial Lead: St Isauro 2088TC SN [id number] Ventricular Lead: St Isauro 2088TC SN [id number] Stimulation Thresholds & Impedance Measurements: Atrial Lead 2.2mV, 0.9@0.5ms, 429Ohms Ventricular Lead 8.4mV, 0.5@0.5ms, 737Ohms Smith Pacing Parameters Pacing mode: DDDR Lower rate: 60 Upper tracking rate: 120 Upper sensor rate: 120 Patient Problems: Problems Problem Status Onset Third degree heart block Acute
== END 2017-04-16 19:00 | disposition home or self-care (01) | DRG 243 ==
LOC: EDUNIT# → F2W 16:45 → OBSVTOIN 04-15 09:48
PROVIDERS: ADMIT Internal Medicine Interventional Cardiology; ATTEND Internal Medicine Interventional Cardiology
DX: I44.2 Atrioventricular block, complete (principal); I11.0 Hypertensive heart disease with heart failure; I50.30 Unspecified diastolic (congestive) heart failure; J84.9 Interstitial pulmonary disease, unspecified; I25.10 Atherosclerotic heart disease of native coronary artery without angina pectoris; I27.20 Pulmonary hypertension, unspecified; E04.1 Nontoxic single thyroid nodule; K21.9 Gastro-esophageal reflux disease without esophagitis; M81.0 Age-related osteoporosis without current pathological fracture; E78.5 Hyperlipidemia, unspecified
CPT/HCPCS: 84481-90; 97162-GP; C1785; C1898; G0378; J1200; J1940; J2250; J3010; J3370